=== PATIENT | male | born 1960 | race Caucasian/White ===

== ENCOUNTER 2025-01-08 06:10 | Day surgery (SDC) | payer BC, SELFPAY ==
[2025-01-02 08:41] LABS: Hematocrit 44.6 % (39.0-52.0); Mean Corp Hgb Conc. 33.6 g/dL (33.0-37.0); Mean Corpuscular Hgb 31.6 pg (27.0-31.0); Mean Corpuscular Volume 93.9 fL (80.0-94.0); Mean Platelet Volume 9.1 fL (7.4-10.4); Platelet Count 199 10^3/uL (130-400); Red Blood Cell Count 4.75 10^6/uL (4.70-6.10); Red Cell Dist. Width 12.6 % (11.5-14.5); White Blood Cell Count 4.9 10^3/uL (4.8-10.8)
[2025-01-02 09:11] LABS: Blood Urea Nitrogen 18 mg/dl (9-20); Calcium 9.2 mg/dl (8.4-10.2); Carbon Dioxide 30 mmol/L (22-30); Chloride 97 mmol/L (98-107); Glucose 95 mg/dl (70-99); Sodium 134 mmol/L (135-145); eGFR > 60.00
[2025-01-02 14:02] VITALS: BMI 23.2
--- NOTE | 2025-01-03 14:12 | PTCARENOTE ---
Patients 01/02 ECG abnormal- reviwed by Dr. Hansen- no additional interventions required
[2025-01-08] VITALS (7 sets, daily range): BP systolic 138–156; BP diastolic 71–89; BMI 23.2
[2025-01-08] MEDS: CELEBREX 200 MG PO (10:37)
[2025-01-08] MEDS: TYLENOL 1000 MG PO (10:37)
[2025-01-08] MEDS: NORMOSOL-R/PLASMALYTE-A 1000 IV (10:38)
== END 2025-01-08 14:13 | disposition home or self-care (01) ==
LOC: SDS 06:10
PROVIDERS: ATTENDING PHYSICIAN Orthopaedic Surgery Hand Surgery; FAMILY PHYSICIAN Family Medicine
DX: M75.41 Impingement syndrome of right shoulder (principal); M75.101 Unspecified rotator cuff tear or rupture of right shoulder, not specified as traumatic; Z87.39 Personal history of other diseases of the musculoskeletal system and connective tissue
CPT/HCPCS: 29827; 36415; 80048; 85027; 93005; C1713